=== PATIENT | female | born 1955 | race Caucasian/White ===

== ENCOUNTER 2016-04-26 05:56 | Day surgery (SDC) | payer MEDICARE, MEDICAID ==
[2016-04-26] MEDS: LACTATED RINGERS 1,000 ML ONE (08:15)
[2016-04-26] MEDS ORDERED: SUCCINYLCHOLINE CHLORIDE 200 MG/10 ML VIAL ONE (10:07)
--- NOTE | 2016-04-26 10:43 | OP ---
DATE OF PROCEDURE: 04/26/16 PREOPERATIVE DIAGNOSIS: 1. Average risk colon cancer screening, this is the patients first colonoscopy. 2. Constipation. POSTOPERATIVE DIAGNOSIS: 1. Diverticulosis. 2. Internal hemorrhoids. PROCEDURE: 1. Colonoscopy. SURGEON: Jed Hayes MD. COMPLICATIONS: None apparent. BLOOD LOSS: None. MEDICATIONS: Monitored anesthesia care. DESCRIPTION OF PROCEDURE: Informed consent was obtained prior to sedation. The preprocedure cardiopulmonary assessment was satisfactory. The patient was placed in the left lateral decubitus position and was sedated. A digital rectal exam was unremarkable. The tip of the Olympus colonoscope was inserted in the rectum and guided over to the cecum. The cecum was identified by locating the ileocecal valve and appendiceal orifice. Prep was good. The mucosa of the cecum, ascending colon, hepatic flexure, transverse colon, splenic flexure, descending colon and sigmoid colon was closely examined. Direct and retroflexed views of the rectum were obtained. The patient had some scattered diverticulosis and she had internal hemorrhoids. Otherwise, the colonoscopy was unremarkable. RECOMMENDATIONS: 1. She has been using some MiraLAX for her constipation and I think she should continue that daily. 2. Followup colonoscopy in ten years. #[id number] cc: Dr. Garret BELL
[2016-04-26 10:58] VITALS: BP 149/85; TEMP 98.4; O2SAT 97
[2016-04-26] MEDS ORDERED: PROPOFOL 200 MG/20 ML VIAL IV ONE (12:00)
== END 2016-04-26 11:20 | disposition home or self-care (01) ==
LOC: AMB 05:56
PROVIDERS: ATTEND Internal Medicine Gastroenterology
DX: Z12.11 Encounter for screening for malignant neoplasm of colon (principal); K59.00 Constipation, unspecified; K57.30 Diverticulosis of large intestine without perforation or abscess without bleeding; K64.8 Other hemorrhoids; I10 Essential (primary) hypertension; Z88.2 Allergy status to sulfonamides; Z79.899 Other long term (current) drug therapy; Z87.891 Personal history of nicotine dependence
CPT/HCPCS: 00810; G0121; J0330; J3490; J7120

== ENCOUNTER → 2016-06-20 | Outpatient (CLI) | payer MEDICARE, MEDICAID ==
--- NOTE | 2016-06-21 09:20 | MAM ---
History: Well woman exam. Date of exam: 06/20/2016 Services provided: Bilateral full field digital screening mammography. CAD, the images were reviewed with R2 computer aided detection. FINDINGS: Glandular tissue is scattered glandular contour with increased mammographic density. Study is compared with 2015 exam. Stable glandular distribution. No dominant mass, architectural distortion or clustered microcalcifications. IMPRESSION: Benign exam Recommendation: Routine annual mammography BIRAD CATEGORY: 2 BENIGN Electronically signed by: Jaimie Araya MD 06/21/2016 9:19 AM CDT
== END | disposition home or self-care (01) ==
LOC: RAD 10:48
PROVIDERS: ATTEND Obstetrics & Gynecology
DX: Z12.31 Encounter for screening mammogram for malignant neoplasm of breast (principal)

== ENCOUNTER → 2017-08-09 | Outpatient (CLI) | payer MEDICARE, MEDICAID ==
--- NOTE | 2017-08-10 13:34 | MAM ---
EXAM DESCRIPTION: 3D Screening BILATERAL : Digital Mammography. CLINICAL HISTORY: 61 years Female SCREENING . No complaints. Mother and sister with breast cancer. Childbirth. Postmenopausal. No HRT. Biopsy left breast negative. COMPARISON: 2-D digital screening bilateral study 06/20/2016. Report from prior examination also reviewed. TECHNIQUE: Bilateral CC and MLO projection full-field images, 3-D tomosynthesis digital mammographic technique. CAD not utilized. FINDINGS: The breast parenchymal density pattern is: Scattered areas of fibroglandular density. No skin thickening or nipple retraction. Bilateral solitary microcalcifications. No focal, stellate mass or density, focal asymmetry , and no suspicious microcalcifications bilaterally. Stable mammograms compared to prior study, taking into account differences in mammographic technique IMPRESSION: BI-RADS CATEGORY: 2 - BENIGN FINDINGS. FOLLOW UP: Routine digital bilateral screening, one year interval from July 2017. Written communication explaining the IMPRESSION and follow-up, will be mailed to the patient and referring health care provider. According to the [employer], yearly mammograms are recommended starting at age 40 and continuing as long as a woman is in good health. Any breast change noted on a breast self-exam should be reported promptly to the patient's healthcare provider. Breast MRI is recommended for women with an approximately 20-25% or greater lifetime risk of breast cancer, including women with a strong family history of breast or ovarian cancer and women who have been treated for Hodgkin's disease. A negative mammographic report should not delay tissue diagnosis in patients with significant clinical history or physical findings. Extremely dense breast tissue limits the sensitivity of digital mammography. Electronically signed by: Kiet Linares MD 08/10/2017 1:33 PM CDT
== END ==
LOC: MAMMO 09:53
PROVIDERS: ATTEND Obstetrics & Gynecology
DX: Z12.31 Encounter for screening mammogram for malignant neoplasm of breast (principal)

== ENCOUNTER → 2017-11-30 | Outpatient (CLI) | payer MEDICARE, MEDICAID ==
--- NOTE | 2017-12-03 08:15 | MRI ---
EXAM DESCRIPTION: Lumbar Spine w/o Contrast CLINICAL HISTORY: M47.26 COMPARISON: None Available. TECHNIQUE: MRI of the lumbar spine is performed according to our usual protocol with axial and sagittal multi sequence imaging. FINDINGS: Sagittal T2 images reveal decreased signal intensity consistent with desiccation of the intervertebral discs at levels L3-4 and L4-5. Posterior annular bulges are most prominent at L2-3 through L4-5. No prevertebral mass or aneurysm. Lower cord and conus appear normal. Tip of the conus is behind L1-L2. Sagittal T1 images reveal benign marrow signal characteristics. Normal T1 signal intensity and appearance of the lower cord and conus. Sagittal STIR images are negative for marrow edema within the vertebral bodies or posterior elements. No paraspinous fluid collection or cystic lesion. Axial T1 and T2-weighted images were obtained to evaluate the disc levels. T12-L1: No posterior annular bulge or herniation. No spinal stenosis or neural foraminal narrowing. Facets appear normal. Normal appearance of the lower cord. L1-2: Minimal posterior annular bulge with right paracentral accentuation. No spinal stenosis or neural foraminal narrowing. Facets appear hypertrophied. L2-3: Mild diffuse posterior annular bulge without spinal stenosis or significant neural foraminal narrowing. Facets appear hypertrophied. L3-4: Mild diffuse posterior annular bulge without spinal stenosis. Neural foraminal narrowing is mild bilaterally. Facets appear hypertrophied with narrowing of subarticular recesses crowding the descending L4 nerve roots. L4-5: Mild diffuse posterior annular bulge without spinal stenosis. Neural foraminal narrowing is mild bilaterally. Facet hypertrophic changes cause severe narrowing of the subarticular recesses bilaterally. L5-S1: Mild diffuse posterior annular bulge without spinal stenosis. There is moderate severe bilateral neural foraminal narrowing. Facet hypertrophy is present with marked spurring and ligamentum flavum flavum thickening causing moderate subarticular recess narrowing and mild lateral recess compromise. Sacrum appears intact. No retroperitoneal mass or aneurysm. IMPRESSION: Negative for spinal stenosis or acute appearing disc herniation. Mild posterior annular bulges with facet degenerative changes. Electronically signed by: Yeyo Dooley MD 12/03/2017 8:14 AM CDT
== END ==
LOC: MRI 14:00
PROVIDERS: ATTEND Neurological Surgery
DX: M47.26 Other spondylosis with radiculopathy, lumbar region (principal); M51.26 Other intervertebral disc displacement, lumbar region

== ENCOUNTER → 2018-08-19 | Outpatient (CLI) | payer MEDICARE, MEDICAID ==
--- NOTE | 2018-08-20 15:05 | MAM ---
EXAM DESCRIPTION: 3D Screening BILATERAL : Digital Mammography. CLINICAL HISTORY: 62 years Female SCREEN . No complaints. Mother and sister with breast cancer. Remote family history of breast cancer. Childbirth. Postmenopausal more than 20 years. Currently on HRT.. Lifetime risk of developing breast cancer (Tyrer-Cuzick model)(%): 26.2 COMPARISON: Bilateral screening digital breast tomosynthesis 08/09/2017. TECHNIQUE: Bilateral CC and MLO projection full-field images, digital tomosynthesis mammographic technique. Bilateral digital 2-D full-field MLO images. CAD not available for tomosynthesis or 2-D images. FINDINGS: The breast parenchymal density pattern is: Scattered areas of fibroglandular density. No skin thickening or nipple retraction. Bilateral microcalcifications. 2 coarse calcifications and a smaller third calcification lateral mid right breast. Probably a small degenerating fibroadenoma. Vascular calcifications. No new focal, stellate mass or density, focal asymmetry , and no suspicious microcalcifications bilaterally. IMPRESSION: Benign exam. BIRAD CATEGORY: 2 BENIGN FINDINGS. RECOMMENDATIONS: FOLLOW UP: Routine digital bilateral mammographic screening, one year interval from August 2018. Written communication explaining the IMPRESSION and follow-up, will be mailed to the patient and referring health care provider. According to the [employer], yearly mammograms are recommended starting at age 40 and continuing as long as a woman is in good health. Any breast change noted on a breast self-exam should be reported promptly to the patient's healthcare provider. Breast MRI is recommended for women with an approximately 20-25% or greater lifetime risk of breast cancer, including women with a strong family history of breast or ovarian cancer and women who have been treated for Hodgkin's disease. A negative mammographic report should not delay tissue diagnosis in patients with significant clinical history or physical findings. Extremely dense breast tissue limits the sensitivity of digital mammography. Electronically signed by: Kiet Linares MD 08/20/2018 3:03 PM CDT
== END ==
LOC: MAMMO 14:00
PROVIDERS: ATTEND Obstetrics & Gynecology
DX: Z12.31 Encounter for screening mammogram for malignant neoplasm of breast (principal)